=== PATIENT | female | born 1990 | race Caucasian/White ===

== ENCOUNTER 2019-02-26 01:56 | Inpatient (IN) | payer BC, OTHER ==
[2019-02-26] MEDS ORDERED: Nalbuphine 10 MG/1 ML Vial IVPUSH PRN (10:18)
[2019-02-26] MEDS ORDERED: Ondansetron 4 MG/2 ML SDV IVPUSH PRN ×2 (10:18→14:16)
[2019-02-26] MEDS ORDERED: Sodium Chloride 0.9% 10 ML Syringe FLUSH PRN (10:18)
[2019-02-26] MEDS ORDERED: Oxytocin/Lactated Ringers 10 UNIT/1,000 ML BAG IV SCH ×2 (10:30)
[2019-02-26] MEDS: Lactated Ringers 1,000 ML IV SCH ×3 (11:23→23:26)
[2019-02-26] MEDS ORDERED: ePHEDrine 50 MG/ML SDV IVPUSH PRN (14:16)
[2019-02-26] MEDS ORDERED: fentaNYL 100 MCG/2 ML SDV EPIDUR PRN (14:16)
--- NOTE | 2019-02-26 14:18 | PCM.PREANE ---
Preanesthetic Assessment - Anesthesia/Transfusion/Family Hx Anesthesia History: Prior Anesthesia Without Reaction Family History of Anesthesia Reaction: No Transfusion History: No Prior Transfusion(s) Intubation History: Unknown - Review of Systems General: No Symptoms Pulmonary: No Symptoms Cardiovascular: No Symptoms (PIH), Lightheadedness (with migraines) Gastrointestinal: No Symptoms (GERD) Neurological: No Symptoms (chronic back pain L4-L5), Headache (migraines), Tingling (CTS bilateral hands) Other: Reports: None, Easy Bruising, Sinus Problem (seasonal allergies), Anxiety - Physical Assessment NPO Status Date: 02/26/19 NPO Status Time: 14:00 Vital Signs: Last Vital Signs Temp 37.3 C 02/26/19 10:39 Pulse 99 02/26/19 10:39 Resp 16 02/26/19 10:39 BP 145/84 H 02/26/19 10:39 Pulse Ox Height: 1.65 m Weight: 82.1 kg ASA Class: 2 Mental Status: Alert & Oriented x3 Airway Class: Mallampati = 2 Dentition: Reports: Normal Dentition, Caries Thyro-Mental Finger Breadths: 3 Mouth Opening Finger Breadths: 3 ROM/Head Extension: Full Lungs: Clear to Auscultation, Normal Respiratory Effort Cardiovascular: Regular Rate, Regular Rhythm, No Murmurs - Lab Values: Laboratory Last Values WBC 9.12 K/mm3 (3.98-10.04) 02/26/19 11:01 RBC 3.85 M/mm3 (3.98-5.22) L 02/26/19 11:01 Hgb 12.2 gm/L (11.2-15.7) 02/26/19 11:01 Hct 35.4 % (34.1-44.9) 02/26/19 11:01 MCV 91.9 fl (79.4-94.8) 02/26/19 11:01 MCH 31.7 pg (25.6-32.2) 02/26/19 11:01 MCHC 34.5 g/dl (32.2-35.5) 02/26/19 11:01 RDW Std Deviation 39.7 fL (36.4-46.3) 02/26/19 11:01 Plt Count 127 K/mm3 (182-369) L 02/26/19 11:01 MPV 13.5 fl (9.4-12.3) H 02/26/19 11:01 Creatinine 0.7 mg/dL (0.55-1.02) 02/26/19 11:08 Est Cr Clr Drug Dosing TNP 02/26/19 11:08 Estimated GFR (MDRD) > 60 mL/min (>60) 02/26/19 11:08 AST 15 U/L (15-37) 02/26/19 11:08 ALT 20 U/L (14-59) 02/26/19 11:08 Ur Random Creatinine 59.5 mg/dL (30.0-125.0) 02/26/19 13:12 U Random Total Protein 11.8 mg/dL (0.0-11.8) 02/26/19 13:12 Protein/Creatinin Ratio 198.3 mg/g (0-149) H 02/26/19 13:12 Blood Type O POSITIVE 02/26/19 11:01 Gel Antibody Screen Negative 02/26/19 11:01 Above labs reviewed and noted and within acceptable ranges to proceed with epidural if desired. 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 Smoking Status *Q: Never Smoker Second Hand Smoke Exposure: No Recreational Drug Use History: No - CURRENT (IN HOUSE) MEDS Current Meds: Current Medications Lactated Ringer's (Ringers, Lactated) 1,000 mls @ 40 mls/hr IV ASDIRECTED TAYLOR Last Admin: 02/26/19 11:23 Dose: 40 mls/hr Oxytocin/Lactated Ringer's (Pitocin In Lr 10 Units/1,000 Ml) 10 unit in 1,000 mls @ 12 mls/hr IV TITRATE TAYLOR; Protocol Last Admin: 02/26/19 11:23 Dose: 2 munits/min, 12 mls/hr Oxytocin/Lactated Ringer's (Pitocin In Lr 10 Units/1,000 Ml) 10 unit in 1,000 mls @ 500 mls/hr IV .CONTINUOUS TAYLOR Nalbuphine HCl (Nubain) 10 mg IVPUSH Q2H PRN PRN Reason: Pain Ondansetron HCl (Zofran) 4 mg IVPUSH Q4H PRN PRN Reason: Nausea/Vomiting Sodium Chloride (Saline Flush) 10 ml FLUSH ASDIRECTED PRN PRN Reason: Keep Vein Open
[2019-02-26] MEDS ORDERED: Phenylephrine 1 MG in Sodium Chloride 0.9% 10 ML IV SCH (14:30)
[2019-02-26] MEDS ORDERED: Bupivacaine/fentaNYL/NS 100 ML Bag EPIDUR SCH (14:30)
--- NOTE | 2019-02-26 19:22 | PCM.LDHP ---
L&D History of Present Illness - General Date of Service: 02/26/19 Admit Problem/Dx: Patient Status Order with Admit Dx/Problem 02/26/19 10:18 Patient Status [ADT] Routine Admission Diagnosis/Problem Admission Diagnosis/Problem Gestational hypertension Source of Information: Patient History Limitations: Reports: No Limitations - History of Present Illness Introduction:: Patient is a 29 y/o at 37 3/7 wks who presents for IOL for elevated BP noted in clinic. Doing well otherwise. No headaches, vision changes, or RUQ pain. 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 (Approximate): - Past Surgical History Female Surgical History: Reports: Other (See Below) (hymenectomy, urethral cyst excision) Social & Family History - Tobacco Use Smoking Status *Q: Never Smoker Second Hand Smoke Exposure: No - Alcohol Use Alcohol Use History: No - Recreational Drug Use Recreational Drug Use: No H&P Review of Systems - Review of Systems: Review Of Systems: See Below General: Reports: No Symptoms Pulmonary: Reports: No Symptoms Cardiovascular: Reports: No Symptoms Gastrointestinal: Reports: No Symptoms Genitourinary: Reports: No Symptoms Musculoskeletal: Reports: No Symptoms Psychiatric: Reports: No Symptoms Neurological: Reports: No Symptoms L&D Exam - Exam Exam: See Below - Vital Signs Vital Signs: Last Vital Signs Temp 37.3 C 02/26/19 10:39 Pulse 99 02/26/19 10:39 Resp 16 02/26/19 10:39 BP 145/84 H 02/26/19 10:39 Pulse Ox Weight: 82.1 kg - OB Specific Contraction Intensity: Irritability Movement: Active Heart Tones: Present Heart Tones per Min: 145 Heart Rate (FHR) Variability: Moderate (6-25 bmp) Presentation: Vertex - Dennis Score Dennis Score Cervix Position: Posterior Dennis Score Consistency: Soft Dennis Score Effacement: 51-70% Dennis Score Dilation: 3-4 cm Dennis Score Infant's Station: -2 Dennis Score Total: 7 - Exam General: Alert, Oriented, Cooperative Lungs: Clear to Auscultation, Normal Respiratory Effort Cardiovascular: Regular Rate, Regular Rhythm GI/Abdominal Exam: Soft, Non-Tender Genitourinary: Normal external exam Back Exam: Normal Inspection Extremities: Normal Inspection Skin: Warm, Dry, Intact - Patient Data Lab Results Last 24 hrs: Laboratory Results - last 24 hr 02/26/19 02/26/19 02/26/19 Range/Units 11:01 11:01 11:08 WBC 9.12 (3.98-10.04) K/mm3 RBC 3.85 L (3.98-5.22) M/mm3 Hgb 12.2 (11.2-15.7) gm/L Hct 35.4 (34.1-44.9) % MCV 91.9 (79.4-94.8) fl MCH 31.7 (25.6-32.2) pg MCHC 34.5 (32.2-35.5) g/dl RDW Std Deviation 39.7 (36.4-46.3) fL Plt Count 127 L (182-369) K/mm3 MPV 13.5 H (9.4-12.3) fl Creatinine 0.7 (0.55-1.02) mg/dL Est Cr Clr Drug Dosing TNP Estimated GFR (MDRD) > 60 (>60) mL/min AST 15 (15-37) U/L ALT 20 (14-59) U/L Ur Random Creatinine (30.0-125.0) mg/dL U Random Total Protein (0.0-11.8) mg/dL Protein/Creatinin Ratio (0-149) mg/g Blood Type O POSITIVE Gel Antibody Screen Negative 02/26/19 Range/Units 13:12 WBC (3.98-10.04) K/mm3 RBC (3.98-5.22) M/mm3 Hgb (11.2-15.7) gm/L Hct (34.1-44.9) % MCV (79.4-94.8) fl MCH (25.6-32.2) pg MCHC (32.2-35.5) g/dl RDW Std Deviation (36.4-46.3) fL Plt Count (182-369) K/mm3 MPV (9.4-12.3) fl Creatinine (0.55-1.02) mg/dL Est Cr Clr Drug Dosing Estimated GFR (MDRD) (>60) mL/min AST (15-37) U/L ALT (14-59) U/L Ur Random Creatinine 59.5 (30.0-125.0) mg/dL U Random Total Protein 11.8 (0.0-11.8) mg/dL Protein/Creatinin Ratio 198.3 H (0-149) mg/g Blood Type Gel Antibody Screen Result Diagrams: 02/26/19 11:01 02/26/19 11:08 - Problem List (1) 37 weeks gestation of SNOMED Code(s): 24593265 ICD Code: Z3A.37 - 37 WEEKS GESTATION OF Status: Acute Current Visit: Yes (2) Gestational hypertension SNOMED Code(s): 279461893 ICD Code: O13.9 - GESTATIONAL HTN W/O SIGNIFICANT PROTEINURIA, UNSP TRIMESTER Status: Acute Current Visit: Yes Qualifiers: Trimester: third trimester Qualified Code(s): O13.3 - Gestational [ -induced] hypertension without significant proteinuria, third trimester Problem List Initiated/Reviewed/Updated: Yes Orders Last 24hrs: Active Orders 24 hr Category Date Time Status Patient Status [ADT] Routine ADT 02/26/19 10:18 Active Activity as Tolerated [RC] PFP Care 02/26/19 10:18 Active Communication Order [RC] ASDIRECTED Care 02/26/19 10:18 Active Communication Order [RC] ASDIRECTED Care 02/26/19 10:18 Active Communication Order [RC] ASDIRECTED Care 02/26/19 10:18 Active Notify Provider [RC] ASDIRECTED Care 02/26/19 10:18 Active Notify Provider [RC] ASDIRECTED Care 02/26/19 14:16 Active Notify Provider [RC] PRN Care 02/26/19 10:18 Active Oxygen Therapy [RC] ASDIRECTED Care 02/26/19 14:16 Active Peripheral IV Care [RC] . DIRECTED Care 02/26/19 10:23 Active Pulse Oximetry [RC] ASDIRECTED Care 02/26/19 14:16 Active Up ad Zaria [RC] ASDIRECTED Care 02/26/19 10:23 Active Regular Diet [DIET] Diet 02/26/19 Breakfast Active PATIENT RETYPE [BBK] Routine Lab 02/26/19 12:22 Ordered RAPID PLASMA REAGIN,RPR [CHEM] Routine Lab 02/26/19 10:18 Ordered Bupivacaine/fentaNYL/NS [fentaNYL/Bupivacaine/NS 2 MCG- Med 02/26/19 14:30 Active 0.125% 100 ML] 100 ml EPIDUR ASDIRECTED Lactated Ringers [Ringers, Lactated] 1,000 ml Med 02/26/19 10:30 Active IV ASDIRECTED Nalbuphine [Nubain] Med 02/26/19 10:18 Active 10 mg IVPUSH Q2H PRN Ondansetron [Zofran] Med 02/26/19 14:16 Active 4 mg IVPUSH ONETIME PRN Ondansetron [Zofran] Med 02/26/19 10:18 Active 4 mg IVPUSH Q4H PRN Oxytocin/Lactated Ringers [Pitocin in LR 10 Units/1,000 Med 02/26/19 10:30 Active ML] 10 unit in 1,000 ml IV .CONTINUOUS Oxytocin/Lactated Ringers [Pitocin in LR 10 Units/1,000 Med 02/26/19 10:30 Active ML] 10 unit in 1,000 ml IV TITRATE Phenylephrine [Jermaine-Synephrine] 1 mg Med 02/26/19 14:30 Active Sodium Chloride 0.9% [Normal Saline] 10 ml IV TITRATE Sodium Chloride 0.9% [Saline Flush] Med 02/26/19 10:18 Active 10 ml FLUSH ASDIRECTED PRN ePHEDrine [ePHEDrine sulfate] Med 02/26/19 14:16 Active 5 mg IVPUSH ASDIRECTED PRN fentaNYL [Sublimaze] Med 02/26/19 14:16 Active 100 mcg EPIDUR Q3H PRN Electronic Heart Tones Ext w TOCO [WOMSER] Oth 02/26/19 10:18 Ordered Routine Electronic Heart Tones Internal [WOMSER] Per Unit Oth 02/26/19 10:18 Ordered Routine Peripheral IV Insertion Adult [OM.PC] Routine Ot 02/26/19 10:18 Ordered Medication Orders Ephedrine Sulfate (Ephedrine Sulfate) 5 mg IVPUSH ASDIRECTED PRN PRN Reason: Hypotension Fentanyl (Sublimaze) 100 mcg EPIDUR Q3H PRN PRN Reason: Pain Fentanyl/Bupivacaine HCl (Fentanyl/Bupivacaine/Ns 2 Mcg-0.125% 100 Ml) 100 ml EPIDUR ASDIRECTED TAYLOR Lactated Ringer's (Ringers, Lactated) 1,000 mls @ 40 mls/hr IV ASDIRECTED TAYLOR Last Admin: 02/26/19 11:23 Dose: 40 mls/hr Oxytocin/Lactated Ringer's (Pitocin In Lr 10 Units/1,000 Ml) 10 unit in 1,000 mls @ 12 mls/hr IV TITRATE TAYLOR; Protocol Last Titration: 02/26/19 18:35 Dose: 20 munits/min, 120 mls/hr Titration: 02/26/19 16:30 Dose: 18 munits/min, 108 mls/hr Titration: 02/26/19 16:00 Dose: 16 munits/min, 96 mls/hr Titration: 02/26/19 15:30 Dose: 14 munits/min, 84 mls/hr Titration: 02/26/19 15:00 Dose: 12 munits/min, 72 mls/hr Titration: 02/26/19 14:00 Dose: 10 munits/min, 60 mls/hr Titration: 02/26/19 13:30 Dose: 8 munits/min, 48 mls/hr Titration: 02/26/19 12:50 Dose: 6 munits/min, 36 mls/hr Titration: 02/26/19 12:00 Dose: 4 munits/min, 24 mls/hr Admin: 02/26/19 11:23 Dose: 2 munits/min, 12 mls/hr Oxytocin/Lactated Ringer's (Pitocin In Lr 10 Units/1,000 Ml) 10 unit in 1,000 mls @ 500 mls/hr IV .CONTINUOUS TAYLOR Phenylephrine HCl 1 mg/ Sodium (Chloride) 10.1 mls @ 1 mls/sec IV TITRATE TAYLOR; Protocol Nalbuphine HCl (Nubain) 10 mg IVPUSH Q2H PRN PRN Reason: Pain Ondansetron HCl (Zofran) 4 mg IVPUSH Q4H PRN PRN Reason: Nausea/Vomiting Ondansetron HCl (Zofran) 4 mg IVPUSH ONETIME PRN PRN Reason: Nausea/Vomiting Sodium Chloride (Saline Flush) 10 ml FLUSH ASDIRECTED PRN PRN Reason: Keep Vein Open Assessment/Plan Comment:: 29 y/o at 37 3/7 wks who presents for IOL for gestational HTN * Labs done * GBS negative * Pitocin to be started. AROM when able * Pain management per patient preference * Anticipate
--- NOTE | 2019-02-26 20:02 | PCM.PNLD ---
Labor Progress Note - VS & Meds Vital Signs: Last Vital Signs Temp 37.3 C 02/26/19 10:39 Pulse 99 02/26/19 10:39 Resp 16 02/26/19 10:39 BP 145/84 H 02/26/19 10:39 Pulse Ox Active Medications: Current Medications Ephedrine Sulfate (Ephedrine Sulfate) 5 mg IVPUSH ASDIRECTED PRN PRN Reason: Hypotension Fentanyl (Sublimaze) 100 mcg EPIDUR Q3H PRN PRN Reason: Pain Fentanyl/Bupivacaine HCl (Fentanyl/Bupivacaine/Ns 2 Mcg-0.125% 100 Ml) 100 ml EPIDUR ASDIRECTED TAYLOR Lactated Ringer's (Ringers, Lactated) 1,000 mls @ 40 mls/hr IV ASDIRECTED TAYLOR Last Admin: 02/26/19 11:23 Dose: 40 mls/hr Oxytocin/Lactated Ringer's (Pitocin In Lr 10 Units/1,000 Ml) 10 unit in 1,000 mls @ 12 mls/hr IV TITRATE TAYLOR; Protocol Last Titration: 02/26/19 19:55 Dose: 22 munits/min, 132 mls/hr Oxytocin/Lactated Ringer's (Pitocin In Lr 10 Units/1,000 Ml) 10 unit in 1,000 mls @ 500 mls/hr IV .CONTINUOUS TAYLOR Phenylephrine HCl 1 mg/ Sodium (Chloride) 10.1 mls @ 1 mls/sec IV TITRATE TAYLOR; Protocol Nalbuphine HCl (Nubain) 10 mg IVPUSH Q2H PRN PRN Reason: Pain Ondansetron HCl (Zofran) 4 mg IVPUSH Q4H PRN PRN Reason: Nausea/Vomiting Ondansetron HCl (Zofran) 4 mg IVPUSH ONETIME PRN PRN Reason: Nausea/Vomiting Sodium Chloride (Saline Flush) 10 ml FLUSH ASDIRECTED PRN PRN Reason: Keep Vein Open - Uterine Contractions Uterine Monitoring Mode: External [place] View Contraction Intensity: Mild to Moderate - Monitoring Monitor Mode: External Ultrasound Heart Rate (FHR) Baseline: 140 Heart Rate (FHR) Variability: Moderate (6-25 bmp) Accelerations: Present, 10x10 (=/<32 wks) Decelerations: Variable Strip Review: Category II - Labor Progress (Free Text) Labor Progress: Patient with AROM at 1630 when pitocin was at 18. Now at 20. Reports that contractions are stronger, but still overall able to talk through them. Will continue to increase as able. Reassess as needed.
[2019-02-26] MEDS ORDERED: Oxytocin 10 Units/1 ML SDV ONE (22:19)
[2019-02-27] MEDS ORDERED: Bupivacaine 0.25% 10 ML SDV ONE
--- NOTE | 2019-02-27 02:21 | PCM.DEL ---
L & D Note - General Info Date of Service: 02/27/19 - Delivery Note Labor: Induced by ARM, Induced by Oxytocin Delivery Outcome: Livebirth Infant Delivery Method: Spontaneous Vaginal Delivery-Single Infant Delivery Mode: Vacuum Extraction Presentation: Right Occiput Anterior (LIZETTE) Nuchal Cord: Present, Reduced Anesthesia Type: Epidural Amniotic Fluid Description: Clear Episiotomy Type: None Laceration: 2nd Degree, Labial (right) Suture type: Vicryl Suture size: 2-0 Placenta: Intact, Spontaneous Cord: 3 Vessels Estimated Blood Loss: 200 Resuscitation Needed: Yes : Bulb Syringe, Stimulated, Warmed, [place] Used, Warmer Used Delivery Comments (Free Text/Narrative):: The patient was pushing in the dorsal lithotomy position. Sterile vaginal exam complete/complete/+3 station. head in LIZETTE presentation. Maternal pushing effort was good and the pelvis was felt to be adequate for an instrument assisted delivery. Given recurrent deep variable decelerations the decision was made to proceed with vacuum assisted vaginal delivery. The mushroom cup was placed without difficulty with care to avoid the vaginal side ballesteros. Subsequent vacuum assisted vaginal delivery with pushing over 2 contractions/3 minutes. Total pressure applied 550 mmHg. Total pop offs 0. Suction was removed following delivery of the head. Nuchal cord present and reduced. The infant was placed on maternal abdomen. Cord clamped and cut. Cord blood obtained. Placenta allowed time to separate and expelled intact. Inspection of the perineum following delivery with a right sided labial laceration which was repaired with a running 2-0 vicryl Vacuum Extractor Progress Note - Alternative Labor Strategies Considered Alternative Labor Strategies Considered:: Reports: Yes Strategies Considered:: Reports: Contraction Intensity Adequate, Position Changes Used to Facilitate Rotation & Descent, Empty Bladder Indications Considered:: Reports: Yes Indications:: Reports: Suspicion of Immediate or Potential Compromise Time Out:: Reports: Yes - Patient Prepared Patient Prepared:: Reports: Yes Informed Consent:: Reports: Verbal Risks: Reports: Yes Risks Include:: Reports: Laceration, Maternal Injury, Other Anesthesia/Analgesia Adequate:: Reports: Yes - Probability of Success High Probability of Success:: Reports: Yes Weight Estimated:: Reports: AGA Patient Diabetic:: Reports: No Pelvis Adequate:: Reports: Yes Position:: LIZETTE Asynclitic:: Reports: No Station:: +3 - Application Time Maximum Application Time & Number of Pop-Offs Predetermined:: Reports: Yes Maximum Pressure Maintained in Green Zone (cm Hg):: 550 Total Application Time (min): *max=20min: 3 Number of Times Cup Disengaged:: 0 Type of Vacuum Used:: Reports: Cup: Mushroom type Vacuum Extraction: Successful - Exit Strategy Exit strategy available:: Reports: Yes and resuscitation teams readily available:: Reports: Yes - General Info Date of Service: 02/27/19 - Patient Data Vitals - Most Recent: Last Vital Signs Temp 37.3 C 02/26/19 10:39 Pulse 99 02/26/19 10:39 Resp 16 02/26/19 10:39 BP 145/84 H 02/26/19 10:39 Pulse Ox Weight - Most Recent: 82.1 kg I&O - Last 24 Hours: Intake & Output 02/26/19 02/26/19 02/27/19 14:59 22:59 06:59 Intake Total 320 Balance 320 Lab Results Last 24 Hours: Laboratory Results - last 24 hr 02/26/19 02/26/19 02/26/19 Range/Units 11:01 11:01 11:01 WBC 9.12 (3.98-10.04) K/mm3 RBC 3.85 L (3.98-5.22) M/mm3 Hgb 12.2 (11.2-15.7) gm/L Hct 35.4 (34.1-44.9) % MCV 91.9 (79.4-94.8) fl MCH 31.7 (25.6-32.2) pg MCHC 34.5 (32.2-35.5) g/dl RDW Std Deviation 39.7 (36.4-46.3) fL Plt Count 127 L (182-369) K/mm3 MPV 13.5 H (9.4-12.3) fl Creatinine (0.55-1.02) mg/dL Est Cr Clr Drug Dosing Estimated GFR (MDRD) (>60) mL/min AST (15-37) U/L ALT (14-59) U/L Ur Random Creatinine (30.0-125.0) mg/dL U Random Total Protein (0.0-11.8) mg/dL Protein/Creatinin Ratio (0-149) mg/g RPR Non-reactive (NONREACTIVE) Blood Type O POSITIVE Gel Antibody Screen Negative 02/26/19 02/26/19 Range/Units 11:08 13:12 WBC (3.98-10.04) K/mm3 RBC (3.98-5.22) M/mm3 Hgb (11.2-15.7) gm/L Hct (34.1-44.9) % MCV (79.4-94.8) fl MCH (25.6-32.2) pg MCHC (32.2-35.5) g/dl RDW Std Deviation (36.4-46.3) fL Plt Count (182-369) K/mm3 MPV (9.4-12.3) fl Creatinine 0.7 (0.55-1.02) mg/dL Est Cr Clr Drug Dosing TNP Estimated GFR (MDRD) > 60 (>60) mL/min AST 15 (15-37) U/L ALT 20 (14-59) U/L Ur Random Creatinine 59.5 (30.0-125.0) mg/dL U Random Total Protein 11.8 (0.0-11.8) mg/dL Protein/Creatinin Ratio 198.3 H (0-149) mg/g RPR (NONREACTIVE) Blood Type Gel Antibody Screen Med Orders - Current: Current Medications Ephedrine Sulfate (Ephedrine Sulfate) 5 mg IVPUSH ASDIRECTED PRN PRN Reason: Hypotension Fentanyl (Sublimaze) 100 mcg EPIDUR Q3H PRN PRN Reason: Pain Last Admin: 02/26/19 22:48 Dose: 100 mcg Fentanyl/Bupivacaine HCl (Fentanyl/Bupivacaine/Ns 2 Mcg-0.125% 100 Ml) 100 ml EPIDUR ASDIRECTED TAYLOR Last Admin: 02/26/19 22:47 Dose: 100 ml Lactated Ringer's (Ringers, Lactated) 1,000 mls @ 40 mls/hr IV ASDIRECTED TAYLOR Last Admin: 02/26/19 23:26 Dose: 40 mls/hr Oxytocin/Lactated Ringer's (Pitocin In Lr 10 Units/1,000 Ml) 10 unit in 1,000 mls @ 12 mls/hr IV TITRATE TAYLOR; Protocol Last Titration: 02/26/19 19:55 Dose: 22 munits/min, 132 mls/hr Oxytocin/Lactated Ringer's (Pitocin In Lr 10 Units/1,000 Ml) 10 unit in 1,000 mls @ 500 mls/hr IV .CONTINUOUS TAYLOR Phenylephrine HCl 1 mg/ Sodium (Chloride) 10.1 mls @ 1 mls/sec IV TITRATE TAYLOR; Protocol Oxytocin 20 unit/ Lactated (Ringer's) 1,002 mls @ 72.14 mls/hr IV TITRATE TAYLOR; Protocol Nalbuphine HCl (Nubain) 10 mg IVPUSH Q2H PRN PRN Reason: Pain Ondansetron HCl (Zofran) 4 mg IVPUSH Q4H PRN PRN Reason: Nausea/Vomiting Ondansetron HCl (Zofran) 4 mg IVPUSH ONETIME PRN PRN Reason: Nausea/Vomiting Sodium Chloride (Saline Flush) 10 ml FLUSH ASDIRECTED PRN PRN Reason: Keep Vein Open Discontinued Medications Oxytocin (Pitocin) Confirm Administered Dose 20 unit .ROUTE .ECOtality ONE Stop: 02/26/19 22:20 - Problem List & Annotations (1) Vacuum extraction, delivered, current hospitalization SNOMED Code(s): 618201228 Code(s): O66.5 - ATTEMPTED APPLICATION OF VACUUM EXTRACTOR AND FORCEPS Status: Acute Current Visit: Yes (2) 37 weeks gestation of SNOMED Code(s): 77365546 Code(s): Z3A.37 - 37 WEEKS GESTATION OF Status: Acute Current Visit: Yes (3) Gestational hypertension SNOMED Code(s): 054357677 Code(s): O13.9 - GESTATIONAL HTN W/O SIGNIFICANT PROTEINURIA, UNSP TRIMESTER Status: Acute Current Visit: Yes Qualifiers: Trimester: third trimester Qualified Code(s): O13.3 - Gestational [ -induced] hypertension without significant proteinuria, third trimester - Problem List Review Problem List Initiated/Reviewed/Updated: Yes - My Orders Last 24 Hours: My Active Orders 02/26/19 10:18 Patient Status [ADT] Routine Activity as Tolerated [RC] PFP Communication Order [RC] ASDIRECTED Communication Order [RC] ASDIRECTED Communication Order [RC] ASDIRECTED Notify Provider [RC] ASDIRECTED Notify Provider [RC] PRN Nalbuphine [Nubain] 10 mg IVPUSH Q2H PRN Ondansetron [Zofran] 4 mg IVPUSH Q4H PRN Sodium Chloride 0.9% [Saline Flush] 10 ml FLUSH ASDIRECTED PRN Electronic Heart Tones Ext w TOCO [WOMSER] Routine Electronic Heart Tones Internal [WOMSER] Per Unit Routine Peripheral IV Insertion Adult [OM.PC] Routine 02/26/19 10:23 Peripheral IV Care [RC] . DIRECTED Up ad Zaria [RC] ASDIRECTED 02/26/19 10:30 Lactated Ringers [Ringers, Lactated] 1,000 ml IV ASDIRECTED Oxytocin/Lactated Ringers [Pitocin in LR 10 Units/1,000 ML] 10 unit in 1,000 ml IV .CONTINUOUS Oxytocin/Lactated Ringers [Pitocin in LR 10 Units/1,000 ML] 10 unit in 1,000 ml IV TITRATE 02/26/19 20:24 Communication Order [RC] ASDIRECTED 02/26/19 20:30 Oxytocin [Pitocin] 20 unit Lactated Ringers [Ringers, Lactated] 1,000 ml IV TITRATE 02/26/19 Breakfast Regular Diet [DIET] - Assessment Assessment:: 29 y/o G1 now P1001 PPD#0 from [facility] at 37 4/7 wks after IOL for gestational HTN - Plan Plan:: * Routine cares * Breast feeding * Monitor BP's closely * Discharge home in 1-2 days
[2019-02-27] MEDS ORDERED: Acetaminophen 325 MG Tab PO PRN (03:15)
[2019-02-27] MEDS ORDERED: Benzocaine/Menthol 20%-0.5% Spray 56 GM Canister TOP PRN (03:15)
[2019-02-27] MEDS ORDERED: Docusate Sodium 100 MG Cap PO PRN (03:15)
[2019-02-27] MEDS ORDERED: Lanolin 100% Cream 7 GM Tube TOP PRN (03:15)
[2019-02-27] MEDS ORDERED: Witch Hazel Medicated Pads 40/Jar TOP PRN (03:15)
[2019-02-27] MEDS: Ibuprofen 600 MG Tab PO PRN ×3 (05:34→20:22)
--- NOTE | 2019-02-27 08:51 | PCM48HPAN ---
Post Anesthesia Note - EVALUATION WITHIN 48HRS OF ANESTHETIC Vital Signs in Normal Range: Yes Patient Participated in Evaluation: Yes Respiratory Function Stable: Yes Airway Patent: Yes Cardiovascular Function Stable: Yes Hydration Status Stable: Yes Pain Control Satisfactory: Yes Nausea and Vomiting Control Satisfactory: Yes Mental Status Recovered: Yes Vital Signs: Last Vital Signs Temp 36.7 C 02/27/19 03:35 Pulse 89 02/27/19 03:35 Resp 16 02/27/19 03:35 BP 137/79 02/27/19 03:35 Pulse Ox 100 02/27/19 03:35 - COMMENTS/OBSERVATIONS Free Text/Narrative:: no anesthesia complications noted
[2019-02-28] MEDS: Ibuprofen 600 MG Tab PO PRN (03:50)
--- NOTE | 2019-02-28 08:00 | PCM.DCSUM1 ---
Discharge Summary - Hospital Course Diagnosis: Stroke: No - Discharge Data Discharge Date: 02/28/19 Discharge Disposition: Home, Self-Care 01 Condition: Good - Patient Summary/Data Hospital Course: Admitted with blood pressure elevated for induction. Unremarkable course - Patient Instructions Diet: Usual Diet as Tolerated Activity: No Strenuous Activities Activity, Other: pelvic rest Driving: May Drive Today Showering/Bathing: May Shower Notify Provider of: Fever, Increased Pain, Swelling and Redness, Drainage, Nausea and/or Vomiting - Discharge Plan *PRESCRIPTION DRUG MONITORING PROGRAM REVIEWED*: No *COPY OF PRESCRIPTION DRUG MONITORING REPORT IN PATIENT KYLER: No Referrals: Rebeca Romero MD [Primary Care Provider] - (2-4 weeks) - Discharge Summary/Plan Comment DC Time >30 min.: No - General Info Date of Service: 02/28/19 Functional Status: Reports: Pain Controlled - Review of Systems General: Reports: No Symptoms HEENT: Reports: No Symptoms Pulmonary: Reports: No Symptoms Cardiovascular: Reports: No Symptoms Gastrointestinal: Reports: No Symptoms Genitourinary: Reports: No Symptoms Musculoskeletal: Reports: No Symptoms Skin: Reports: No Symptoms Neurological: Reports: No Symptoms Psychiatric: Reports: No Symptoms - Patient Data Vitals - Most Recent: Last Vital Signs Temp 36.7 C 02/28/19 03:52 Pulse 62 02/28/19 03:52 Resp 16 02/28/19 03:52 BP 111/75 02/28/19 03:52 Pulse Ox 100 02/28/19 03:52 Weight - Most Recent: 82.1 kg I&O - Last 24 hours: Intake & Output 02/27/19 02/28/19 02/28/19 22:59 06:59 14:59 Intake Total 5000 Balance 5000 Med Orders - Current: Current Medications Acetaminophen (Tylenol) 650 mg PO Q4H PRN PRN Reason: mild pain or fever Last Admin: 02/27/19 16:33 Dose: 650 mg Benzocaine/Menthol (Dermoplast Pain Relief [place]) 0 gm TOP ASDIRECTED PRN PRN Reason: Perineal Comfort Measure Last Admin: 02/27/19 05:35 Dose: 1 canister Docusate Sodium (Colace) 100 mg PO BID PRN PRN Reason: Constipation Last Admin: 02/27/19 20:23 Dose: 100 mg Emollient Ointment (Lansinoh Hpa) 0 gm TOP ASDIRECTED PRN PRN Reason: Sore Nipples Ibuprofen (Motrin) 600 mg PO Q6H PRN PRN Reason: Mild pain or fever Last Admin: 02/28/19 03:50 Dose: 600 mg Witch Ericka (Tucks) 1 pad TOP ASDIRECTED PRN PRN Reason: Perineal Comfort Measure Last Admin: 02/27/19 05:36 Dose: 1 tub Discontinued Medications Bupivacaine HCl (Sensorcaine-Mpf 0.25%) 10 ml .ROUTE .STK-MED ONE Stop: 02/27/19 00:01 Ephedrine Sulfate (Ephedrine Sulfate) 5 mg IVPUSH ASDIRECTED PRN PRN Reason: Hypotension Fentanyl (Sublimaze) 100 mcg EPIDUR Q3H PRN PRN Reason: Pain Last Admin: 02/26/19 22:48 Dose: 100 mcg Fentanyl/Bupivacaine HCl (Fentanyl/Bupivacaine/Ns 2 Mcg-0.125% 100 Ml) 100 ml EPIDUR ASDIRECTED TAYLOR Last Admin: 02/26/19 22:47 Dose: 100 ml Lactated Ringer's (Ringers, Lactated) 1,000 mls @ 40 mls/hr IV ASDIRECTED TAYLOR Last Admin: 02/26/19 23:26 Dose: 40 mls/hr Oxytocin/Lactated Ringer's (Pitocin In Lr 10 Units/1,000 Ml) 10 unit in 1,000 mls @ 12 mls/hr IV TITRATE TAYLOR; Protocol Last Titration: 02/26/19 22:50 Dose: Infused Oxytocin/Lactated Ringer's (Pitocin In Lr 10 Units/1,000 Ml) 10 unit in 1,000 mls @ 500 mls/hr IV .CONTINUOUS TAYLOR Phenylephrine HCl 1 mg/ Sodium (Chloride) 10.1 mls @ 1 mls/sec IV TITRATE TAYLOR; Protocol Last Admin: 02/27/19 00:08 Dose: 1 mls/sec Oxytocin 20 unit/ Lactated (Ringer's) 1,002 mls @ 72.14 mls/hr IV TITRATE TAYLOR; Protocol Last Titration: 02/27/19 01:58 Dose: 500 mls/hr Nalbuphine HCl (Nubain) 10 mg IVPUSH Q2H PRN PRN Reason: Pain Ondansetron HCl (Zofran) 4 mg IVPUSH Q4H PRN PRN Reason: Nausea/Vomiting Ondansetron HCl (Zofran) 4 mg IVPUSH ONETIME PRN PRN Reason: Nausea/Vomiting Oxytocin (Pitocin) Confirm Administered Dose 20 unit .ROUTE .STK-MED ONE Stop: 02/26/19 22:20 Last Admin: 02/27/19 20:52 Dose: Not Given Sodium Chloride (Saline Flush) 10 ml FLUSH ASDIRECTED PRN PRN Reason: Keep Vein Open - Exam General: Reports: Alert, Oriented HEENT: Reports: Pupils Equal, Pupils Reactive, EOMI, Mucous Membr. Moist/[place] Neck: Reports: Supple Lungs: Reports: Clear to Auscultation, Normal Respiratory Effort Cardiovascular: Reports: Regular Rate, Regular Rhythm GI/Abdominal Exam: Normal Bowel Sounds, Soft, Non-Tender, No Organomegaly, No Distention Back Exam: Reports: Normal Inspection, Full Range of Motion Extremities: Normal Inspection, Normal Range of Motion, Non-Tender, No Pedal Edema, Normal Capillary Refill Neurological: Reports: No New Focal Deficit Psy/Mental Status: Reports: Alert, Normal Affect, Normal Mood
== END 2019-02-28 12:45 | disposition home or self-care (01) | DRG 807 ==
LOC: JD.OB 01:56 → OBSVTOIN 02-27 01:56
PROVIDERS: ADMIT Obstetrics & Gynecology; ATTEND Obstetrics & Gynecology
PROC: 10D07Z6 Extraction of Products of Conception, Vacuum, Via Natural or Artificial Opening (ICD-10-PCS; principal; 2019-02-27)
PROC: 0KQM0ZZ Repair Perineum Muscle, Open Approach (ICD-10-PCS; 2019-02-27)
PROC: 10907ZC Drainage of Amniotic Fluid, Therapeutic from Products of Conception, Via Natural or Artificial Opening (ICD-10-PCS; 2019-02-27)
PROC: 3E033VJ Introduction of Other Hormone into Peripheral Vein, Percutaneous Approach (ICD-10-PCS; 2019-02-27)
DX: O13.3 Gestational [pregnancy-induced] hypertension without significant proteinuria, third trimester (principal); Z37.0 Single live birth; O69.81X0 Labor and delivery complicated by cord around neck, without compression, not applicable or unspecified; Z88.0 Allergy status to penicillin; Z91.048 Other nonmedicinal substance allergy status; Z67.40 Type O blood, Rh positive; Z3A.37 37 weeks gestation of pregnancy; O70.1 Second degree perineal laceration during delivery
CPT/HCPCS: 36415; 51702; 59025; 59409; 82565; 82570; 84156; 84450; 84460; 85027; 86592; 86850; 86900; 86901; A9270-GY; J2370; J2590; J3010; J3490; J7030; J7120

== ENCOUNTER 2022-10-15 06:02 | Inpatient (IN) | payer BC ==
[2022-10-15] MEDS ORDERED: Calcium Carbonate 500 MG Tab.Chew PO PRN (16:32)
[2022-10-15] MEDS ORDERED: Ondansetron 4 MG/2 ML SDV IVPUSH PRN (16:32)
[2022-10-15] MEDS ORDERED: ceFAZolin 2 GM in Sodium Chloride 0.9% 50 ML IV ONE ×2 (16:32→17:30)
[2022-10-15] MEDS ORDERED: Nalbuphine 10 MG/0.5 ML Syringe IVPUSH PRN (16:32)
[2022-10-15] MEDS ORDERED: Oxytocin/Lactated Ringers 10 UNIT/1,000 ML BAG IV SCH ×2 (16:45)
[2022-10-15] MEDS: Lactated Ringers 1,000 ML IV SCH (17:15)
[2022-10-15] MEDS ORDERED: ePHEDrine 50 MG/ML SDV IVPUSH PRN (19:06)
[2022-10-15] MEDS ORDERED: Bupivacaine/fentaNYL/NS 100 ML Bag EPIDUR PRN (19:06)
[2022-10-15] MEDS ORDERED: fentaNYL 100 MCG/2 ML SDV EPIDUR PRN (19:06)
[2022-10-15] MEDS ORDERED: diphenhydrAMINE 50 MG/ML SDV IVPUSH PRN (19:06)
[2022-10-16] MEDS ORDERED: ceFAZolin 1 GM in Sodium Chloride 0.9% 100 ML IV SCH ×2
[2022-10-16] MEDS: Lactated Ringers 1,000 ML IV SCH ×2 (00:28→01:49)
[2022-10-16] MEDS ORDERED: Lidocaine 1% 10 ML MDV ONE (04:00)
[2022-10-16] MEDS ORDERED: Benzocaine/Menthol 20%-0.5% Spray 78 GM Cannister TOP PRN (07:05)
[2022-10-16] MEDS ORDERED: Docusate Sodium 100 MG Cap PO PRN (07:05)
[2022-10-16] MEDS ORDERED: Witch Hazel Medicated Pads 40/Jar TOP PRN (07:05)
[2022-10-16] MEDS ORDERED: Acetaminophen 325 MG Tab PO PRN (07:05)
[2022-10-16] MEDS: Ibuprofen 600 MG Tab PO PRN ×2 (08:41→21:26)
[2022-10-17] MEDS: Ibuprofen 600 MG Tab PO PRN (08:29)
== END 2022-10-17 13:05 | disposition home or self-care (01) | DRG 560 ==
LOC: JD.OB 06:02 → OBSVTOIN 10-16 06:02 → JD.OB 10-16 06:03
PROVIDERS: ADMIT Obstetrics & Gynecology; ATTEND Obstetrics & Gynecology
PROC: 00HU33Z Insertion of Infusion Device into Spinal Canal, Percutaneous Approach (ICD-10-PCS; principal; 2022-10-16)
PROC: 10907ZC Drainage of Amniotic Fluid, Therapeutic from Products of Conception, Via Natural or Artificial Opening (ICD-10-PCS; principal; 2022-10-16)
PROC: 0UQMXZZ Repair Vulva, External Approach (ICD-10-PCS; principal; 2022-10-16)
PROC: 10E0XZZ Delivery of Products of Conception, External Approach (ICD-10-PCS; principal; 2022-10-16)
PROC: 3E033VJ Introduction of Other Hormone into Peripheral Vein, Percutaneous Approach (ICD-10-PCS; principal; 2022-10-16)
PROC: 3E0R3BZ Introduction of Anesthetic Agent into Spinal Canal, Percutaneous Approach (ICD-10-PCS; principal; 2022-10-16)
DX: O13.4 Gestational [pregnancy-induced] hypertension without significant proteinuria, complicating childbirth (principal); O99.824 Streptococcus B carrier state complicating childbirth; O71.82 Other specified trauma to perineum and vulva; Z3A.38 38 weeks gestation of pregnancy; Z37.0 Single live birth; Z88.0 Allergy status to penicillin; Z88.8 Allergy status to other drugs, medicaments and biological substances; Z87.891 Personal history of nicotine dependence
CPT/HCPCS: 01967; 36415; 51702; 59025; 59409; 82565; 82570; 84156; 84450; 84460; 85025; 86592; 86850; 86900; 86901; A9270-GY; J0690; J2590; J3010; J3490; J7120